=== PATIENT | female | born 1990 | race Caucasian/White ===

== ENCOUNTER → 2017-01-03 | Outpatient (CLI) | payer BC ==
[~2017-01-03] MED LIST: PRENTAB26 PO
[2017-01-03 16:40] LABS: HEMATOCRIT 34.1 % (37-47)
[2017-01-03 17:31] LABS: GTGD 50 Grams
== END | disposition home or self-care (01) ==
LOC: C.LAB1850 15:21
PROVIDERS: ATTEND Obstetrics & Gynecology
DX: Z34.02 Encounter for supervision of normal first pregnancy, second trimester (principal)

== ENCOUNTER → 2017-03-02 | Outpatient (CLI) | payer BC | END | disposition home or self-care (01) | LOC: C.LABSPEC 17:46 | PROVIDERS: ATTEND Obstetrics & Gynecology | DX: Z34.03 Encounter for supervision of normal first pregnancy, third trimester (principal) ==

== ENCOUNTER 2017-04-01 00:54 | Inpatient (IN) | payer BC ==
[~2017-04-01] VITALS: Ht 170.2 cm; Wt 107.7 kg
[2017-04-01 01:30] VITALS: Ht 170.2 cm; Wt 107.7 kg
[2017-04-01] MEDS ORDERED: PRENTAB26 PO (01:30)
[2017-04-01] MEDS ORDERED: LACTATED RINGER'S 1000ML 1,000 ML IV PRN (01:51)
[2017-04-01 02:09] LABS: HEMATOCRIT 36.1 % (37-47); MEAN CELL VOLUME 87.2 fL (80-100); MEAN CORPUSCULAR HEMOGLOBIN 29.5 pg (25-34); MEAN CORPUSCULAR HGB CONC 33.8 g/dl (32-36); MEAN PLATELET VOLUME 10.8 fL (7.4-10.4); PLATELET COUNT 287 K/uL (130-400); RED BLOOD COUNT 4.14 M/uL (4.2-5.4); WHITE BLOOD COUNT 18.01 K/uL (4.8-10.8)
[2017-04-01] MEDS ORDERED: BUTORPHANOL TARTRATE 1 MG/ML VIAL IV PRN (02:30)
[2017-04-01] MEDS: LACTATED RINGER'S 1000ML 1,000 ML IV SCH ×2 (03:38→06:08)
[2017-04-01] MEDS ORDERED: EpHEDrine SULFATE INJ 50 MG/ML AMP ONE (04:51)
[2017-04-01] MEDS ORDERED: FENTANYL 2MCG/ML ROPIV 1.25MG/ML 100ML BAG EPI ONE (04:51)
[2017-04-01] MEDS ORDERED: BUPIVACAINE 0.25% 30 ML VIAL ONE (04:51)
[2017-04-01] MEDS ORDERED: FENTANYL CITRATE INJ 50 MCG/1 ML 2 ML VIAL ONE (04:51)
[2017-04-01] MEDS ORDERED: NALOXONE HCL INJ 0.4 MG/1 ML VIAL/CARP IV PRN (05:45)
[2017-04-01] MEDS ORDERED: LACTATED RINGER'S 1000ML 500 ML IV PRN (05:45)
[2017-04-01] MEDS ORDERED: NALOXONE HCL INJ 1 MG in SODIUM CHLORIDE 0.9% 1000ML 1,000 ML IV PRN (05:45)
[2017-04-01] MEDS ORDERED: NALBUPHINE HCL INJ 10 MG/ML AMP IV PRN (05:45)
[2017-04-01] MEDS ORDERED: PROMETHAZINE HCL INJ 6.25 MG in SODIUM CHLORIDE 0.9% 50ML 50 ML IV PRN (05:45)
[2017-04-01] MEDS ORDERED: EpHEDrine SULFATE INJ 50 MG/ML AMP IV PRN (05:45)
[2017-04-01] MEDS ORDERED: DiphenhydrAMINE HCL 50 MG/ML VIAL IV PRN (05:45)
[2017-04-01] MEDS ORDERED: ONDANSETRON INJ 2 MG/ML 2 ML VIAL IV PRN (05:45)
[2017-04-01] MEDS: FENTANYL 2MCG/ML ROPIV 1.25MG/ML 100ML BAG EPI PRN ×2 (06:52→10:16)
[2017-04-01] MEDS ORDERED: OXYTOCIN 30 UNITS/500ML NSS IV ONE (11:27)
[2017-04-01] MEDS ORDERED: HYDROCORTISONE ACETATE 25 MG SUPP PR PRN (12:00)
[2017-04-01] MEDS ORDERED: ACETAMINOPHEN 325 MG TAB PO PRN (12:00)
[2017-04-01] MEDS ORDERED: DIPHTHERIA/TETANUS/PERTUSSIS 0.5 ML SYR/VIAL IM. ONE (12:00)
[2017-04-01] MEDS ORDERED: SUPERCREAM 0.870 % 15GM JAR EXT PRN (12:00)
[2017-04-01] MEDS ORDERED: ACETAMINOPHEN/CODEINE 300/30MG TAB PO PRN ×2 (12:00)
[2017-04-01] MEDS ORDERED: OXYTOCIN 30 UNITS/500ML NSS IV PRN (12:00)
[2017-04-01] MEDS ORDERED: BENZOCAINE 20% AER SPR 82.5 GM CAN EXT PRN (12:00)
[2017-04-01] MEDS ORDERED: LANOLIN OINT EXT PRN ×2 (12:00)
--- NOTE | 2017-04-01 13:27 | Anesthesia Procedure Note ---
Anesthesia Epidural Removal Nt Date & Time Apr 01, 2017 at 13:27 Vital Signs Pain Intensity: 0.0 Notes Mental Status: alert / awake / arousable, participated in evaluation Nausea / Vomiting: adequately controlled Pain: adequately controlled Airway Patency, RR, SpO2: stable & adequate BP & HR: stable & adequate Hydration State: stable & adequate Neuraxial Anesthesia: was administered, sensory block is resolving Anesthetic Complications: no major complications apparent, pt satisfied with anesthetic care Epidural: removed without complications, with tip intact
[2017-04-01 14:10] VITALS: BP 126/76; PULSE 98; TEMP 36.3
[2017-04-01] MEDS: IBUPROFEN 600 MG TAB PO PRN (14:28)
[2017-04-01 15:45] VITALS: BP 119/73; PULSE 104; TEMP 36.8; O2SAT 96
[2017-04-01] MEDS: DOCUSATE SODIUM 100 MG CAP PO SCH (19:19)
[2017-04-01 19:20] VITALS: BP 122/79; PULSE 84; TEMP 36.9
[2017-04-01 23:45] VITALS: BP 116/77; PULSE 91; TEMP 36.8
--- NOTE | 2017-04-01 23:51 | DELIVERY SUMMARY ---
DATE OF OPERATION: 04/01/2017 FINDINGS: Viable male with Apgars of 8 and 9. Baby delivered spontaneously over midline second degree laceration. Cord blood samples obtained. Placenta delivered spontaneously. Laceration repaired with 4-0 Vicryl in a routine fashion. Estimated blood loss was 300 mL. LABOR NOTE: The patient is a 27-year-old 1, para 0 with an EDC of 26 March at 40 plus weeks gestational age who presented to labor and delivery in active labor. The patient did not have rupture of membranes or vaginal bleeding. The patient transferred her obstetrical care to our practice at 28 weeks' gestational age. She had a benign course. Blood type is A positive, antibody negative, hepatitis B negative. She had a 1 hour Glucola and a negative 3rd trimester beta strep culture. On admission, the patient was felt to be in active labor and was observed. She then received an epidural and had artificial rupture of membranes with clear fluid. At this point, the delivering physician assumed care for the patient. The patient progressed to full dilatation and began her second stage. She pushed for approximately an hour delivering a viable male infant. Cord was clamped and cut, cord blood samples obtained. Placenta was delivered spontaneously. Midline laceration was repaired with 4-0 Vicryl in a routine fashion. Estimated blood loss was 300 mL. Sponge and needle count was correct. I attest to the content of the Intraoperative Record and any orders documented therein. Any exception s are noted below.
[2017-04-02 04:30] VITALS: BP 122/73; PULSE 72; TEMP 36.8
[2017-04-02 07:17] LABS: HEMATOCRIT 32.1 % (37-47)
[2017-04-02 07:30] VITALS: BP 116/80; PULSE 93; TEMP 36.8
--- NOTE | 2017-04-02 07:40 | Progress Note ---
Subjective Apr 02, 2017. Subjective conversation w/ patient, physical exam Ambulation: ambulating normally Feeding Type: Bottle Feeding Objective Vital Signs Date Time Temp Pulse Resp B/P (MAP) Pulse Ox O2 Delivery O2 Flow Rate FiO2 04/02/17 04:30 36.8 72 16 122/73 (89) 04/01/17 23:45 Room Air 04/01/17 23:45 36.8 91 16 116/77 (90) 04/01/17 19:20 36.9 84 18 122/79 (93) 04/01/17 15:45 36.8 104 22 119/73 (88) 96 Room Air 04/01/17 15:45 Room Air 04/01/17 14:10 36.3 98 20 126/76 (93) Physical Exam General Appearance: WELL-APPEARING Fundus: Firm, Non-Tender Extremities: no calf tenderness Laboratory Results Last 24 Hours Test 04/02/17 06:57 Hemoglobin 10.8 g/dL Hematocrit 32.1 % Assessment and Plan Post- Day#: 1 Continue Routine Care: - routine care - doing well
[2017-04-02] MEDS: FERROUS SULFATE 325 MG TAB PO SCH (08:11)
[2017-04-02] MEDS: DOCUSATE SODIUM 100 MG CAP PO SCH ×2 (08:12→20:09)
[2017-04-02] MEDS: PRENATAL VITAMIN TAB PO SCH (08:12)
[2017-04-02] MEDS: IBUPROFEN 600 MG TAB PO PRN (12:25)
[2017-04-02 15:50] VITALS: BP 119/78; PULSE 71; TEMP 36.4; O2SAT 98
[2017-04-02] MEDS ORDERED: BISACODYL 5 MG TABEC PO SCH (20:00)
--- NOTE | 2017-04-02 21:08 | Discharge Instructions ---
Discharge Instructions Date of Service Apr 02, 2017. Admission Reason for Admission: LABOR Discharge Discharge Diagnosis / Problem: Delivery Discharge Goals Goal(s): Routine recovery after delivery Medications Continue Dispensed Medications: supercream, dermaplast, tucks, lansinoh Activity Recommendations Activity Limitations: per Instructions/Follow-up section . Instructions / Follow-Up Instructions / Follow-Up ACTIVITY RECOMMENDATIONS: * Gradual return to full activity over the next 2-3 weeks. * No lifting - nothing heavier than baby over the next 2-3 weeks. * Do not engage in vigorous exercise, sexual activity or sports until cleared by your physician. * Do not drive or operate any motorized equipment until cleared by your physician. * You may shower/bathe daily. MEDICATIONS: For discomfort or pain, you may use Acetaminophen (Tylenol), Ibuprofen (Advil), or Naproxen (Aleve) following the package directions. For constipation you may use Colace following the package directions. BREAST CARE: If you are not breast feeding: * Wear a supportive bra 24 hours a day for one to two weeks. * Avoid stimulating your breasts and nipples as much as possible during the first few weeks after delivery. * When taking a shower, have the warm water hit your back, not breasts. * When your breasts feel full, apply ice packs. Usually three to four times a day helps ease the discomfort. * Take a mild pain medication (Tylenol / Motrin) when you are uncomfortable. If breast feeding: * Use breast milk to lubricate nipples. Lansinoh cream may be used for sore nipples. You do not need to remove cream prior to breast feeding. If using a different brand of cream, check the label for directions regarding removal of cream prior to nursing. * Wear a supportive bra. * If having problems with breasts or breast feeding, call a transportation sales consultant or your health care provider. EPISIOTOMY CARE: After delivery, if you have an episiotomy (stitches), the following steps will ease discomfort and aid healing. * For the first 24 hours after delivery, place ice packs next to your episiotomy to help reduce swelling. * After the first 24 hour-period, sitz baths, either portable or in the tub, are suggested. A shower with a shower arm sprayed over the episiotomy may be comforting. * Nay care should be done after each voiding and bowel movement. Squirt warm water from a plastic bottle over the perineum (region of the body between the anus and urinary opening) and pat dry. * Use Dermoplast to ease discomfort. Shake container. [place] directly over the episiotomy. Place a Tucks on a clean sanitary pad next to your episiotomy. SPECIAL CARE INSTRUCTIONS: When you are discharged from the hospital, it is important for you to follow the instructions listed below: * During the first week at home, you should be able to care for yourself and your baby. In addition, the usual light household activities are encouraged. * Limit your activities to the way you feel. Do not try to clean the house or move furniture. Be sensible. * If you actively engage in sports and have done so up until the time of your delivery, you may resume these activities as soon as you feel able. This may take up to one month or even longer. Use good judgment. * Continue to take your vitamins for at least six weeks after the of your baby. * Your diet need not be limited unless you were on a special diet before your delivery. Breast-feeding mothers need around 2500 calories per day and at least 64-80 ounces of fluid per day (8 to 10 glasses). * You should eat foods from the four major food groups. Crash diets or fad diets are to be avoided. Eating lean meats, fresh fruits and vegetables, low-fat dairy products, high fiber foods and a regular exercise program, will help you get back to your pre- weight without putting your health at risk. * Constipation is sometimes a problem after delivery. Take a mild laxative as needed. If breast feeding, Milk of Magnesia is acceptable to use. You may use a suppository or Fleets enema if no episiotomy. * A daily shower or tub bath is suggested. Be sure to thoroughly and gently dry the perineum. * A bloody vaginal discharge will usually continue until around four weeks post . A small amount of bleeding may continue for as long as six weeks. Vaginal discharge changes from the bright red bleeding after delivery to pink then brownish and finally yellowish-pink before becoming white and disappearing. * Bleeding may increase with activity. Your first period may come in 4-8 weeks. If you are breast feeding, your period may be delayed even longer. * [place] (sex) can begin whenever both you and your partner feel comfortable and do not have any form of genital infection. It is recommended that you wait at least six weeks for internal and external healing to occur. If you have questions, please talk to your health care practitioner. A condom should be used to prevent infection and . * Foreplay, gentle intercourse and lubrication is very important the first several times to prevent pain. A water-based lubricant such as K-Y jelly or Astroglide may be used. * If you have RH negative blood and your baby is RH positive, you will receive RHOGAM by injection prior to discharge. The nurse will give you a card to keep with you that has the date and place that you received RHOGAM after delivery. * During your care, you had a Rubella screen done to check for the presence of rubella antibodies in your blood. If your test was negative, you will receive a Rubella vaccine prior to discharge. This vaccine may cause a fever, soreness at the injection site and flu-like symptoms. If these symptoms persist, notify your health care practitioner. is not advised for one month after a Rubella vaccine. * Verbalizes understanding of car seat law as reviewed with patient nursing. * Car Seat hand-out given and reviewed with patient by nursing. * Shaken baby information reviewed with patient by nursing. Call you doctor if: * Heavy bleeding (saturating several pads an hour) or passing clots the size of your fist. * A fever >101 degrees F (38.3 degrees C) on two occasions four hours apart and /or chills. * Unusual pain in the pelvic or vaginal areas. * "Baby Blues" lasting longer than two weeks. If you have any questions or concerns, call your health care practitioner at . FOLLOW UP VISIT: * Please call the office at to schedule a 6 week examination. It is important you keep this appointment. It is important for you to make arrangements for either yearly or twice yearly check-ups thereafter. Current Hospital Diet Patient's current hospital diet: Regular OB Diet Discharge Diet Recommended Diet: Regular Diet Pending Studies Studies pending at discharge: no Medical Emergencies . Who to Call and When: Medical Emergencies: If at any time you feel your situation is an emergency, please call 911 immediately. . Non-Emergent Contact Non-Emergency issues call your: Primary Care Provider . . "Provider Documentation" section prepared by Gricelda Coronel. . VTE Core Measure Inpt VTE Proph given/why not?: Treatment not indicated
[2017-04-02 23:40] VITALS: BP 104/61; PULSE 72; TEMP 36.7
--- NOTE | 2017-04-03 07:03 | OB/GYN Progress Note ---
HYDRAULIC MECHANIC Progress Note Date of Service Apr 03, 2017. Subjective conversation w/ patient, physical exam, chart review, lab review Ambulation: ambulating normally Voiding: no voiding problems Passing Gas: Yes Diet Tolerance: Regular Diet Lochia: Moderate Feeding Type: Bottle Feeding Pain: controlled Review of Systems Respiratory: No shortness of breath Cardiac: No chest pain Abdomen: No nausea, No vomiting Female : No dysuria Objective Vital Signs Date Time Temp Pulse Resp B/P (MAP) Pulse Ox O2 Delivery O2 Flow Rate FiO2 04/02/17 23:40 36.7 72 16 104/61 (75) 04/02/17 23:40 Room Air 04/02/17 15:50 36.4 71 18 119/78 (92) 98 Room Air 04/02/17 15:50 98 Room Air 04/02/17 08:00 Room Air 04/02/17 07:30 36.8 93 20 116/80 (92) Room Air Physical Exam General Appearance: WELL-APPEARING, WD/WN, NO APPARENT DISTRESS Respiratory/Chest: lungs clear, normal breath sounds Cardiovascular: regular rate, rhythm Abdomen: normal bowel sounds, soft Fundus: Firm, Tender (appropriately tender), Relation to Umbilicus (2 below U) Extremities: no calf tenderness Assessment and Plan Post- Day Number: 2 Continue Routine Care: - Vital Signs reviewed and WNL. - Blood Type: A+, GBS - , Rubella Immune. - Pt is doing well clinically. - Encourage Ambulation, Monitor and Control pain with Motrin PRN, Resume regular diet, Monitor Lochia - Encourage Breast Feeding. Pt is both bottle and breast feeding. - Pt counselled on DC instructions. ZOEY CORONEL PGY1 FM RESIDENT Resident Physician Supervision Note: I interviewed and examined the patient. Discussed with Dr. Coronel and agree with findings and plan as documented in the note. Any exceptions or clarifications are listed here: [None] Documented By: Francisco Salazar Resident Tracking Resident Involvement: Resident Care Provided Care Provided: OB Delivery
[2017-04-03 07:50] VITALS: BP 128/80; PULSE 80; TEMP 36.7
[2017-04-03] MEDS: FERROUS SULFATE 325 MG TAB PO SCH (09:47)
[2017-04-03] MEDS: DOCUSATE SODIUM 100 MG CAP PO SCH (09:47)
[2017-04-03] MEDS: PRENATAL VITAMIN TAB PO SCH (09:47)
[2017-04-03 10:05] VITALS: BP_DIAS 80; PULSE 80; TEMP 36.7
== END 2017-04-03 10:25 | disposition home or self-care (01) | DRG 775 ==
LOC: C.OPB 00:54 → C.LD 00:58 → C.OPB 01:52 → C.LD 01:52 → C.OBG 14:57
PROVIDERS: ADMIT Obstetrics & Gynecology; ATTEND Obstetrics & Gynecology
PROC: 10E0XZZ Delivery of Products of Conception, External Approach (ICD-10-PCS; principal; 2017-04-01)
PROC: 0KQM0ZZ Repair Perineum Muscle, Open Approach (ICD-10-PCS; principal; 2017-04-01)
DX: O48.0 Post-term pregnancy (principal); O70.1 Second degree perineal laceration during delivery; Z37.0 Single live birth; Z3A.41 41 weeks gestation of pregnancy

== ENCOUNTER 2019-12-21 02:55 | Inpatient (IN) ==
[2019-12-21] MEDS ORDERED: OXYTOCIN 30 UNITS/500 ML BAG IV PRN (03:14)
--- NOTE | 2019-12-21 03:18 | Labor Progress Brief Note ---
Date of Service December 21, 2019 Subjective 29yo at 39w2d with contractions every 10min when she called in, now about every 5min per patient on arrival to L&D. No ROM, no VB, good FM. Uncomplicated . Assessment & Plan (1) Normal labor and delivery: Admit, labs, IV fluids, wants epidural; anesthesia notified. Laboring spontaneously. Physical Exam Physical Exam: /-2/intact membranes FHT cat 1 [place] not picking up contractions yet Results & Data Vital Signs (Past 12 Hours) Vital Signs Pulse BP 12/21/19 03:08 85 134/84 Coding Level of Care Code None Diagnoses Normal labor and delivery O80
[2019-12-21] MEDS: LACTATED RINGER'S 1,000 ML IV PRN ×2 (03:27→04:26)
--- NOTE | 2019-12-21 03:27 | Anesthesiology Consultation ---
Date of Service December 21, 2019 Assessment & Plan Chart Review Chart Review: Patient NOT seen in Pre Admission Testing and Acceptable Risk for Labor Epidural Consults Requested none ASA ASA2 Proposed Anesthesia Anesthesia Type: Labor Epidural History Height/Weight Height: 5 ft 7 in Weight: 108.409 kg Allergies Allergy/AdvReac Type Severity Reaction Status Date / Time Penicillins Allergy Intermediate HIVES Verified 12/21/19 03:10 Medications Home Medications Medication Instructions Recorded Confirmed Last Taken vit-iron fum-folic ac 1 tab PO DAILY 12/21/19 12/21/19 12/20/19 08:00 [ Vitamin] Active Medications Generic Name Dose Route Start Last Admin Trade Name Freq PRN Reason Stop Dose Admin Lactated Ringer's 1,000 mls @ 125 mls/hr 12/21/19 03:14 12/21/19 03:27 Lr IV 12/23/19 03:13 999 mls/hr .Q8H PRN Administration L&D Protocol Protocol Past Medical History Medical History Varicella Exercise / Class Metabolic Activity III < 4 Walking/Shop/Light housework Past Family History Family History Grandmother (Maternal) Breast cancer Grandmother (Paternal) Breast cancer Osteoporosis Mother Breast cancer Graves' disease Grandfather (Maternal) Diabetes Heart disease Family/Other Diabetes Past Surgical History Surgical History S/P wisdom tooth extraction Past Anesthesia History No Hx of Anesthesia Complications and No Family Hx of Anesthesia Complications History of PONV No Hx of PONV and No Hx of Motion Sickness Social History Smoking Status: Never smoker Hx Alcohol Use: No Hx Substance Use: No substance use type: does not use Physical Exam Vital Signs Last Vital Signs Pulse 85 12/21/19 03:08 BP 134/84 12/21/19 03:08
[2019-12-21] MEDS ORDERED: BUPIVACAINE 0.25% 30 ML VIAL ONE (03:34)
[2019-12-21] MEDS ORDERED: ePHEDrine sulfate 50 MG/ML AMP ONE (03:34)
[2019-12-21 03:35] LABS: Hematocrit (blood only) 39.3 % (37-47); Hemoglobin 13.5 g/dL (12.0-16.0); Mean Corpuscular Hemoglobin 31.1 pg (25-34); Mean Corpuscular Volume 90.6 fL (80-100); Mean Platelet Volume 10.7 fL (7.4-10.4); Platelet Count 265 K/uL (130-400); RDW Coefficient of Variation 14.2 % (11.5-14.5); Red Blood Count 4.34 M/uL (4.2-5.4); White Blood Count 13.43 K/uL (4.8-10.8)
[2019-12-21] MEDS ORDERED: fentaNYL 2MCG/ML ROPIV 1.25MG/ML 100 ML BAG EPI ONE (03:35)
[2019-12-21] MEDS ORDERED: fentaNYL citrate 100 MCG/2 ML VIAL ONE (03:35)
[2019-12-21 03:36] LABS: Mean Corpuscular Hgb Conc 34.4 g/dL (32-36)
[2019-12-21] MEDS ORDERED: NALBUPHINE HCL INJ 10 MG/ML AMP IV PRN (04:14)
[2019-12-21] MEDS ORDERED: ONDANSETRON INJ 2 MG/ML 2 ML VIAL IV PRN (04:14)
[2019-12-21] MEDS ORDERED: NALOXONE HCL 1 MG in SODIUM CHLORIDE 0.9% 1000ML 1,000 ML IV PRN (04:14)
[2019-12-21] MEDS ORDERED: PROMETHAZINE HCL 25 MG in SODIUM CHLORIDE 0.9% 50 ML IV PRN (04:14)
[2019-12-21] MEDS ORDERED: fentaNYL 2MCG/ML ROPIV 1.25MG/ML 100 ML BAG EPI PRN (04:14)
[2019-12-21] MEDS ORDERED: DiphenhydrAMINE HCL 50 MG/ML VIAL IV PRN (04:14)
[2019-12-21] MEDS ORDERED: ePHEDrine sulfate 50 MG/ML AMP IV PRN (04:14)
[2019-12-21] MEDS ORDERED: NALOXONE HCL 0.4 MG/1 ML VIAL/CARP IV PRN (04:14)
--- NOTE | 2019-12-21 06:59 | Delivery Summary ---
Vaginal Delivery Summary Date of Service December 21, 2019 Vaginal Delivery Summary DIAGNOSES: 1. Boss intrauterine at 39w2d gestation. 2. Spontaneous onset of labor. 3. Group B Streptococcus Neg. PROCEDURE: Spontaneous vaginal delivery and repair of 1st degree laceration. SURGEON: Emily La MD. SLIVER LAP MACHINE TENDER: None. ESTIMATED BLOOD LOSS: 250 mL. COMPLICATIONS: None. PLACENTA: Spontaneous and intact with a 3-vessel cord. DISPOSITION: Stable to labor and delivery. DESCRIPTION: The patient pushed well and brought the head to in OA position. The 's head was allowed to deliver with contraction force and no further active pushing, with the perineum protected during this time. The shoulders delivered easily with a maternal pushing effort. There was one loose nuchal cord. The right shoulder was anterior and R arm compound presentation was noted. The shoulders and body delivered without any difficulty, and the was placed on the maternal abdomen. It was vigorous and moving all extremities, and making respiratory efforts. The cord was doubly clamped by the MD and then cut by the FOB. The placenta delivered spontaneously and was noted to be intact and with a 3VC but had a lot of calcification so was sent for exam. The cervix, vagina and perineum were examined and were found to have only a 1st degree perineal laceration which was repaired in running locked manner with vicryl. The fundus was firm and lochia minimal immediately after delivery.
[2019-12-21] MEDS ORDERED: IBUPROFEN 600 MG TAB PO PRN (07:03)
[2019-12-21] MEDS ORDERED: HYDROCORTISONE ACETATE 25 MG SUPP PR PRN (07:03)
[2019-12-21] MEDS ORDERED: OXYCODONE/ACETAMINOPHEN 5mg/325mg TAB PO PRN (07:03)
[2019-12-21] MEDS ORDERED: ACETAMINOPHEN 325 MG TAB PO PRN (07:03)
[2019-12-21] MEDS ORDERED: DIPHTHERIA/TETANUS/PERTUSSIS 0.5 ML SYR/VIAL IM ONE (07:03)
[2019-12-21] MEDS ORDERED: SUPERCREAM 0.870% 15 GM JAR EXT PRN (07:03)
[2019-12-21] MEDS ORDERED: BENZOCAINE 20% AER SPR 82.5 GM CAN EXT PRN (07:03)
--- NOTE | 2019-12-21 08:27 | Anesthesiology Progress Note ---
Date of Service December 21, 2019 Anesthesia Post Procedure Vital Signs Vital Signs: Temp Pulse Resp BP Pulse Ox 12/21/19 08:14 68 117/68 12/21/19 08:00 18 12/21/19 07:59 69 127/82 12/21/19 07:45 18 12/21/19 07:44 77 143/84 H 12/21/19 07:30 71 18 128/71 12/21/19 07:29 71 128/71 12/21/19 07:15 18 12/21/19 07:14 71 110/61 12/21/19 07:00 36.9 C 20 12/21/19 06:57 83 130/74 97 12/21/19 06:52 73 97 12/21/19 06:50 77 93 12/21/19 06:47 75 100 12/21/19 06:44 71 125/74 12/21/19 06:42 105 H 99 12/21/19 06:41 93 H 90 12/21/19 06:37 74 100 12/21/19 06:32 98 H 85 L 12/21/19 06:30 72 117/69 12/21/19 06:27 65 99 12/21/19 06:26 86 93 12/21/19 06:22 69 98 12/21/19 06:17 72 98 12/21/19 06:14 75 122/69 12/21/19 06:12 64 100 12/21/19 06:07 70 99 12/21/19 06:02 80 98 12/21/19 05:59 95 H 18 110/62 12/21/19 05:57 69 100 12/21/19 05:52 71 96 12/21/19 05:47 69 96 12/21/19 05:44 64 118/69 12/21/19 05:42 68 98 12/21/19 05:40 84 93 12/21/19 05:37 66 98 12/21/19 05:32 69 97 12/21/19 05:29 91 H 123/80 12/21/19 05:27 66 97 12/21/19 05:26 87 94 12/21/19 05:22 65 96 12/21/19 05:17 65 96 12/21/19 05:14 68 121/77 12/21/19 05:12 62 96 12/21/19 05:07 70 96 12/21/19 05:02 65 97 12/21/19 04:59 60 126/79 12/21/19 04:57 65 97 12/21/19 04:52 37.0 C 61 18 97 12/21/19 04:47 66 96 12/21/19 04:44 71 18 126/76 12/21/19 04:43 65 93 12/21/19 04:42 66 94 12/21/19 04:39 59 L 18 130/77 12/21/19 04:37 65 98 12/21/19 04:34 65 20 128/78 12/21/19 04:32 62 97 12/21/19 04:29 67 129/75 12/21/19 04:27 71 97 12/21/19 04:23 71 133/81 12/21/19 04:22 82 97 12/21/19 04:20 73 18 139/81 12/21/19 04:17 66 129/72 98 12/21/19 04:14 67 131/87 12/21/19 04:12 69 99 12/21/19 04:11 63 20 142/86 H 12/21/19 04:08 61 20 111/68 12/21/19 04:07 63 99 12/21/19 04:05 64 22 122/69 12/21/19 04:02 78 100 12/21/19 03:57 73 100 12/21/19 03:52 83 100 12/21/19 03:47 78 95 12/21/19 03:42 86 99 12/21/19 03:08 85 134/84 Pain Intensity Bilateral Lower Abdomen: Pain Intensity: 0 Transfer of Care Handoff Completed per policy Notes Mental Status: alert / awake / arousable and participated in evaluation Patient Amnestic to Procedure: Yes Nausea / Vomiting: adequately controlled Pain: adequately controlled Airway Patency, RR, SpO2: stable & adequate BP & HR: stable & adequate Hydration State: stable & adequate Anesthetic Complications: no major complications apparent and Pt Satisfied with anesthetic care
[2019-12-21] MEDS: PRENATAL VITAMIN 1 TAB PO SCH (08:52)
[2019-12-21] MEDS: DOCUSATE SODIUM 100 MG CAP PO SCH ×2 (08:52→20:01)
[2019-12-22 06:54] LABS: Hematocrit (blood only) 38.4 % (37-47); Hemoglobin 12.8 g/dL (12.0-16.0); Mean Corpuscular Hemoglobin 30.8 pg (25-34); Mean Corpuscular Hgb Conc 33.3 g/dL (32-36); Mean Corpuscular Volume 92.5 fL (80-100); Mean Platelet Volume 10.9 fL (7.4-10.4); Platelet Count 240 K/uL (130-400); RDW Coefficient of Variation 14.7 % (11.5-14.5); RDW Standard Deviation 49.7 fL (36.4-46.3); Red Blood Count 4.15 M/uL (4.2-5.4); White Blood Count 12.46 K/uL (4.8-10.8)
--- NOTE | 2019-12-22 08:31 | Obstetrical Progress Note ---
Date of Service December 22, 2019 Assessment & Plan (1) Encounter for care and examination after delivery: stable course wishes to be discharged follow up in 6 weeks. Day #:: 1 Subjective Ambulation: ambulating normally Voiding: no voiding problems Passing Gas:: Yes Diet Tolerance:: regular diet Lochia:: Small Feeding Type:: bottle feeding Physical Exam Constitutional WD/WN, vitals as above Gastrointestinal (Abdomen) normal bowel sounds, soft, nontender, no hepatosplenomegaly Psychiatric A+Ox3, euthymic affect Genitourinary OB Exam Abdomen: + fundal height Fundus: + firm and + relation to umbilicus (2 below U) Results & Data Vital Signs (Past 12 Hours) Vital Signs Temp Pulse Resp BP Pulse Ox 12/22/19 07:20 98.2 F 74 18 132/86 97 12/22/19 05:00 98.2 F 76 18 108/68 12/21/19 23:10 98.2 F 73 18 121/79
[2019-12-22] MEDS: DOCUSATE SODIUM 100 MG CAP PO SCH (08:44)
[2019-12-22] MEDS: PRENATAL VITAMIN 1 TAB PO SCH (08:44)
== END 2019-12-22 13:10 | disposition home or self-care (01) | DRG 807 ==
LOC: OPB 02:55 → 4S1 03:00 → 4S2 12:10

== ENCOUNTER 2024-01-24 03:46 | Inpatient (IN) ==
[2024-01-24] MEDS: LIDOCAINE 1% LOCAL 20 ML VIAL ONE (04:07)
[2024-01-24] MEDS ORDERED: OXYTOCIN 30 UNITS/NSS 30 UNITS/500 ML BAG IV PRN ×2 (04:28→04:31)
[2024-01-24] MEDS ORDERED: LACTATED RINGER'S 1,000 ML IV PRN (04:28)
[2024-01-24] MEDS ORDERED: LIDOCAINE 1% LOCAL 20 ML VIAL INFIL PRN (04:28)
[2024-01-24] MEDS ORDERED: HYDROCORTISONE ACETATE 25 MG SUPP PR PRN (04:31)
[2024-01-24] MEDS ORDERED: oxyCODONE/ACETAMINOPHEN 5mg/325mg TAB PO PRN (04:31)
[2024-01-24] MEDS ORDERED: bisacodyL 10 MG SUPP PR PRN (04:31)
[2024-01-24] MEDS ORDERED: ACETAMINOPHEN 325 MG TAB PO PRN (04:31)
--- NOTE | 2024-01-24 04:36 | Delivery Summary ---
Vaginal Delivery Summary Date of Service January 24, 2024 Vaginal Delivery Summary and 2nd Degree LAC Patient is a 33-year-old 3 para 2-0-0-2 female EDC 01/28/2024 who presented in active labor. has otherwise been uncomplicated. Group B strep is negative. She presented to labor and delivery at 9 cm dilation membranes were ruptured for a very small amount of clear fluid. She rapidly went to full dilation with the urge to push. She pushed effectively over intact perineum for delivery of a viable male . After the head was delivered the rest the infant delivered rapidly. He was vigorous c crying and moving all 4 limbs. After 1 minute the cord was clamped and cut. The infant was placed on the mother's abdomen for further attention and drying. The placenta was then expressed intact with a three-vessel cord. bleeding was controlled with IM Pitocin and fundal massage. A second-degree perineal laceration was repaired with 3-0 chromic in usual fashion. 1% lidocaine was used to anesthetize the laceration site. Mother and were doing well after delivery. QBL was 150 mL [facility] Vaginal Delivery Charge Delivery Type Details: and 2nd Degree LAC
[2024-01-24 05:01] LABS: Hematocrit (blood only) 33.6 % (37.0-47.0); Hemoglobin 11.2 g/dl (12.0-16.0); Mean Corpuscular Hemoglobin 29.7 pg (25.0-34.0); Mean Corpuscular Hgb Conc 33.3 g/dL (32.0-36.0); Mean Corpuscular Volume 89.1 fL (80.0-100.0); Mean Platelet Volume 10.7 fL (9.4-12.4); Platelet Count 273 K/uL (130-400); RDW Coefficient of Variation 14.4 % (11.5-14.5); RDW Standard Deviation 46.5 fL (36.4-46.3); Red Blood Count 3.77 M/uL (4.20-5.40); White Blood Count 18.23 K/ul (4.8-10.8)
[2024-01-24] MEDS: DIPHTHER/TETAN/PERTUS Vaccine (Tdap, Adol/Adult) 0.5mL IM ONE (05:17)
[2024-01-24] MEDS: OXYTOCIN 10 UNITS/ML VIAL ONE (05:21)
[2024-01-24] MEDS: OXYTOCIN 10 UNITS/ML 10ML VIAL IM ONE (05:32)
[2024-01-24] MEDS: BENZOCAINE 20% SPRY 85 APPLN/85 GM CAN EXT PRN (06:28)
[2024-01-24] MEDS: CALCIUM CARBONATE 500 MG CHEWABLE TAB PO PRN (06:29)
[2024-01-24] MEDS: IBUPROFEN 600 MG TAB PO PRN (07:48)
[2024-01-24] MEDS: DOCUSATE SODIUM 100 MG CAP PO SCH (07:48)
[2024-01-24] MEDS: PRENATAL VITAMIN 1 TAB PO SCH (07:48)
[2024-01-24] MEDS ORDERED: MEASLES, MUMPS & RUBELLA VIRUS VACCINE (MMR) 0.5ML VIAL ONE (08:58)
[2024-01-24] MEDS: MEASLES, MUMPS & RUBELLA VIRUS VACCINE (MMR) 0.5ML VIAL SQ ONE (09:08)
--- NOTE | 2024-01-25 06:23 | Obstetrical Progress Note ---
Date of Service <Kings Miller DO - Last Filed: 01/25/24 06:25> January 25, 2024 Assessment & Plan <Kings Miller - Last Filed: 01/25/24 06:25> (1) Encounter for assessment: Plan 33 y/o PPD#1: Eating well, voiding well, ambulating well Vitals reviewed, WNL Pain well controlled with Motrin Routine post care - OOB, ambulation, diet progression as tolerated Will have 6 week follow up with Dr. Pinon <Evie Cueva, DO - Last Filed: 01/25/24 08:43> (1) Encounter for assessment: Subjective <Kings Miller, - Last Filed: 01/25/24 06:25> Ambulation: ambulating normally Voiding: no voiding problems Diet Tolerance:: regular diet Lochia:: Moderate Feeding Type:: breast feeding pain well controlled with Motrin Review of Systems -Denies fever or chills -Denies dyspnea, chest pain, or palpitations -Denies dysuria -Denies headache or changes in vision Physical Exam <Kings Miller, DO - Last Filed: 01/25/24 06:25> General: Alert and oriented. No acute distress Cardiac: Regular rate and rhythm, no murmurs appreciated Respiratory: Lungs clear to auscultation bilaterally, No increased work of breathing Abdominal: Soft, non-tender, non-distended. Bowel sounds present. Uterus: Uterine fundus firm, palpable below umbilicus Extremities: No lower extremity edema, calves non-tender bilaterally Results & Data <Kings Miller, DO - Last Filed: 01/25/24 06:25> Vital Signs (Past 12 Hours) Vital Signs Temp Pulse Resp BP Pulse Ox O2 Del Method 01/25/24 04:00 36.5 C 81 18 133/80 97 Room Air 01/25/24 01:00 36.9 C 78 16 120/82 99 Room Air 01/24/24 21:00 36.8 C 80 16 123/81 99 Room Air Supervising Physician <Evie Cueva, DO - Last Filed: 01/25/24 08:43> Co-Signing Physician Notes Resident Physician Supervision Note: I was present with Dr. Miller during the history and exam. I discussed the case with the resident and agree with the findings and plan as documented in the note. Any exceptions or clarifications are listed here: PPD1 doing well. Desires DC home today. Followup 6w PP Documented By: vEie Cuvea DO Resident Activity Tracking <Kings Miller DO - Last Filed: 01/25/24 06:25> Resident Involvement: Resident Care Provided Care Provided: OB Delivery
[2024-01-25 06:35] LABS: Hemoglobin 11.5 g/dl (12.0-16.0); Mean Corpuscular Hemoglobin 29.9 pg (25.0-34.0); Mean Corpuscular Hgb Conc 32.9 g/dL (32.0-36.0); Mean Corpuscular Volume 90.9 fL (80.0-100.0); Mean Platelet Volume 10.8 fL (9.4-12.4); Platelet Count 257 K/uL (130-400); RDW Coefficient of Variation 14.8 % (11.5-14.5); RDW Standard Deviation 48.9 fL (36.4-46.3); Red Blood Count 3.85 M/uL (4.20-5.40); White Blood Count 15.12 K/ul (4.8-10.8)
[2024-01-25] MEDS ORDERED: bisacodyL 5 MG TABEC PO SCH (20:00)
== END 2024-01-25 11:00 | disposition home or self-care (01) | DRG 807 ==
LOC: OPB 03:46 → 4E1 03:50 → 4E2 06:49